=== PATIENT | male | born 1980 | race Caucasian/White ===

== ENCOUNTER 2017-03-21 09:02 | Emergency (ER) | payer OTHER ==
[~2017-03-21] VITALS: Ht 182.9 cm; Wt 140.0 kg
[2017-03-21 09:07] VITALS: BP 122/77
[2017-03-21] MEDS ORDERED: SODIUM CHLORIDE 0.9% 1,000ML IVBOLUS ONE (10:00)
[2017-03-21] MEDS ORDERED: SODIUM CHLORIDE FLUSH 10ML SYR IVF ONE (10:00)
[2017-03-21] MEDS ORDERED: THIAMINE 100 MG in SODIUM CHLORIDE 0.9% 50 ML IVPB ONE (10:00)
[2017-03-21 10:24] LABS: ALANINE AMINOTRANSFERASE 186 U/L (12-78); ALBUMIN 3.8 g/dL (3.4-5.0); ANION GAP 13 mmol/L (5-15); CALCIUM 8.8 mg/dL (8.5-10.1); CHLORIDE 96 mmol/L (98-107); CREATININE 0.98 mg/dL (0.7-1.3)
[2017-03-21 10:26] LABS: ALKALINE PHOSPHATASE 89 U/L (45-117); BILIRUBIN,TOTAL 1.4 mg/dL (0.2-1.0); TOTAL PROTEIN 7.8 g/dL (6.4-8.2)
[2017-03-21 10:29] LABS: MD YES; MEAN CORPUSCULAR HEMOGLOBIN 33.2 pg (27.5-34.5); MEAN CORPUSCULAR HGB CONC 34.5 g/dL (33.2-36.2); MEAN CORPUSCULAR VOLUME 96.1 fL (81-97); MEAN PLATELET VOLUME 8.6 fL (7.4-10.4); PLATELET COUNT 64 x10^3/uL (130-400); RED CELL DISTRIBUTION WIDTH 15.5 % (9.4-14.8)
[2017-03-21 11:41] LABS: LYMPH#(MANUAL) 0.21 x10^3/uL (1-3.4); LYMPHS% (MANUAL) 3 % (22-44); MONOS#(MANUAL) 0.41 x10^3/uL (0.3-2.7); MONOS% (MANUAL) 6 % (2-9); SEG#(MANUAL) 6.28 x10^3/uL (1.8-6.8); SEGS% (MANUAL) 91 % (42-75)
[2017-03-21 11:42] LABS: <PLATELET ESTIMATE> DECREASED; <PLT MORPHOLOGY> NORMAL PLT MORPH; <RBC MORPHOLOGY> NORMAL
[2017-03-21] MEDS ORDERED: POTASSIUM CHLORIDE 20 MEQ TAB.ER.PRT PO ONE (12:00)
[2017-03-21] MEDS ORDERED: POTASSIUM CHLORIDE 20 MEQ TAB.ER.PRT ONE (12:02)
[2017-03-21] MEDS ORDERED: NS + 20MEQ KCL 1,000 ML IV SCH (12:33)
[2017-03-21 12:54] LABS: INTERNATIONAL NORMALIZED RATIO 1.02 (0.93-1.1); PROTHROMBIN TIME 10.5 Seconds (9.6-11.5)
[2017-03-21] MEDS ORDERED: morphine SULFATE 10 MG/ML, 1ML IVPush PRN (13:00)
[2017-03-21] MEDS ORDERED: LORazepam 2 MG/ML, 1ML IV PRN ×4 (13:00)
[2017-03-21] MEDS ORDERED: POLYETHYLENE GLYCOL 17 GM PACKET PO PRN (13:00)
[2017-03-21] MEDS ORDERED: ONDANSETRON 2MG/ML, 2ML IVPush PRN (13:00)
[2017-03-21] MEDS ORDERED: ACETAMINOPHEN 325 MG TABLET PO PRN (13:00)
[2017-03-21] MEDS ORDERED: ENOXAPARIN 40 MG/0.4 ML SQ SCH (13:00)
[2017-03-21] MEDS ORDERED: FOLIC ACID 1 MG TABLET PO SCH (13:00)
[2017-03-21] MEDS ORDERED: LORazepam 1MG TABLET PO PRN ×3 (13:00)
[2017-03-21] MEDS ORDERED: OXYcodone IR 5MG TABLET PO PRN (13:00)
[2017-03-21] MEDS ORDERED: MULTIVITAMINS/MINERALS TABLET PO SCH (13:00)
[2017-03-21] MEDS ORDERED: LORazepam 0.5MG TABLET PO PRN (13:00)
[2017-03-21] MEDS ORDERED: THIAMINE 100MG TABLET PO SCH (13:00)
[2017-03-21] MEDS ORDERED: DOCUSATE 100 MG CAPSULE PO PRN (13:00)
[2017-03-21] MEDS ORDERED: OMEP-110 PO (17:13)
[2017-03-21] MEDS ORDERED: ATOR40TA78 PO (17:13)
[2017-03-21] MEDS ORDERED: LISI-170 PO (17:13)
[2017-03-21] MEDS ORDERED: FAMOTIDINE 20 MG TABLET PO SCH (21:00)
== END 2017-03-21 13:00 | disposition left against medical advice (07) ==
LOC: ED 10:01 → EDIP 12:22 → UNDOADMIN 12:22 → ED 13:00
DX: R56.9 Unspecified convulsions (principal); F10.239 Alcohol dependence with withdrawal, unspecified; E87.6 Hypokalemia; R00.0 Tachycardia, unspecified; I10 Essential (primary) hypertension
CPT/HCPCS: 36415; 70450; 80053; 80307; 83605; 83690; 85025; 85610; 93005; 96365; 96366; 99285; J3411; J7030

== ENCOUNTER 2017-03-21 15:14 | Inpatient (IN) | payer OTHER ==
[~2017-03-21] VITALS: Ht 182.9 cm; Wt 139.0 kg
[2017-03-21] MEDS ORDERED: BACITRACIN ZINC OINT 500U/GM, 0.9 GM ONE (15:50)
[2017-03-21] MEDS ORDERED: NICOTINE 14MG/24 HR PATCH.TD24 ONE (16:14)
[2017-03-21] MEDS ORDERED: NS + 20MEQ KCL 1,000 ML IV ONE (16:14)
[2017-03-21] MEDS ORDERED: DIPH,PERTUSS(ACELL),TET VAC/PF 0.5 ML IM-VACC ONE ×2 (16:14→16:30)
[2017-03-21] MEDS ORDERED: ENOXAPARIN 40 MG/0.4 ML ONE ×2 (16:14→17:36)
[2017-03-21] MEDS ORDERED: LORazepam 2 MG/ML, 1ML ONE (16:19)
[2017-03-21] MEDS: NICOTINE 14MG/24 HR PATCH.TD24 TD SCH (16:24)
[2017-03-21] MEDS ORDERED: DOCUSATE 100 MG CAPSULE PO PRN (16:30)
[2017-03-21] MEDS ORDERED: morphine SULFATE 10 MG/ML, 1ML IVPush PRN (16:30)
[2017-03-21] MEDS ORDERED: SODIUM CHLORIDE 0.9% 1,000ML IVBOLUS ONE (16:30)
[2017-03-21] MEDS ORDERED: ACETAMINOPHEN 325 MG TABLET PO PRN (16:30)
[2017-03-21] MEDS ORDERED: LORazepam 1MG TABLET PO PRN ×3 (16:30)
[2017-03-21] MEDS ORDERED: ONDANSETRON 2MG/ML, 2ML IVPush PRN (16:30)
[2017-03-21] MEDS ORDERED: LORazepam 2 MG/ML, 1ML IVPush PRN (16:30)
[2017-03-21] MEDS ORDERED: SODIUM CHLORIDE FLUSH 10ML SYR IVF ONE (16:30)
[2017-03-21] MEDS ORDERED: POLYETHYLENE GLYCOL 17 GM PACKET PO PRN (16:30)
[2017-03-21] MEDS ORDERED: LORazepam 2 MG/ML, 1ML IV PRN ×3 (16:30)
[2017-03-21] MEDS ORDERED: ATOR40TA78 PO (17:13)
[2017-03-21] MEDS ORDERED: LISI-170 PO (17:13)
[2017-03-21] MEDS ORDERED: OMEP-110 PO (17:13)
[2017-03-21] MEDS: ENOXAPARIN 40 MG/0.4 ML SQ SCH (17:30)
[2017-03-21 20:38] VITALS: BP 129/89
[2017-03-21] MEDS: OXYcodone IR 5MG TABLET PO PRN (21:23)
[2017-03-21] MEDS: FAMOTIDINE 20 MG TABLET PO SCH (21:23)
[2017-03-21] MEDS: NS + 20MEQ KCL 1,000 ML IV SCH (21:25)
[2017-03-22 02:00] VITALS: BP 151/75
[2017-03-22] MEDS: OXYcodone IR 5MG TABLET PO PRN (02:01)
[2017-03-22] MEDS: NS + 20MEQ KCL 1,000 ML IV SCH (03:35)
[2017-03-22 06:42] LABS: CHLORIDE 103 mmol/L (98-107)
[2017-03-22 07:07] LABS: ANION GAP 9 mmol/L (5-15); CALCIUM 8.2 mg/dL (8.5-10.1); CREATININE 0.87 mg/dL (0.7-1.3)
[2017-03-22 08:08] VITALS: BP 131/86
[2017-03-22] MEDS: FAMOTIDINE 20 MG TABLET PO SCH ×2 (09:13→21:00)
[2017-03-22 12:13] VITALS: BP 142/96
[2017-03-22] MEDS: ENOXAPARIN 40 MG/0.4 ML SQ SCH (16:50)
[2017-03-22] MEDS: NICOTINE 14MG/24 HR PATCH.TD24 TD SCH (16:50)
[2017-03-22] MEDS: METOPROLOL TARTRATE 25 MG TABLET PO SCH (18:28)
[2017-03-22 20:00] VITALS: BP 129/80
[2017-03-22] MEDS: LORazepam 0.5MG TABLET PO PRN (21:13)
[2017-03-23 02:00] VITALS: BP 149/98
[2017-03-23] MEDS: LORazepam 0.5MG TABLET PO PRN (04:36)
[2017-03-23] MEDS: METOPROLOL TARTRATE 25 MG TABLET PO SCH ×2 (05:43→18:00)
[2017-03-23 07:45] VITALS: BP 117/63
[2017-03-23] MEDS ORDERED: SODIUM CHLORIDE NASAL SPRAY 45ML BOTTLE NAS PRN (09:00)
[2017-03-23] MEDS: NICOTINE 21 MG/24 HR PATCH.TD24 TD SCH (09:10)
[2017-03-23] MEDS: FAMOTIDINE 20 MG TABLET PO SCH (09:10)
[2017-03-23 09:48] LABS: ANION GAP 9 mmol/L (5-15); CALCIUM 8.5 mg/dL (8.5-10.1); CHLORIDE 103 mmol/L (98-107); CREATININE 0.88 mg/dL (0.7-1.3)
[2017-03-23 10:10] LABS: BASOPHILS # (AUTO) 0.04 x10^3/uL (0-0.1); BASOPHILS % (AUTO) 1 % (0-1); EOSINOPHILS # (AUTO) 0.07 x10^3/uL (0-0.4); EOSINOPHILS % (AUTO) 1 % (1-7); LYMPHOCYTES # (AUTO) 1.17 x10^3/uL (1-3.4); LYMPHOCYTES % (AUTO) 19 % (22-44); MD SCAN; MEAN CORPUSCULAR HEMOGLOBIN 33.4 pg (27.5-34.5); MEAN CORPUSCULAR HGB CONC 34.8 g/dL (33.2-36.2); MEAN CORPUSCULAR VOLUME 95.8 fL (81-97); MEAN PLATELET VOLUME 9.3 fL (7.4-10.4); MONOCYTES # (AUTO) 0.57 x10^3/uL (0.2-0.8); MONOCYTES % (AUTO) 9 % (2-9); NEUTROPHILS # (AUTO) 4.29 x10^3/uL (1.8-6.8); NEUTROPHILS % (AUTO) 70 % (42-75); PLATELET COUNT 63 x10^3/uL (130-400); RED BLOOD COUNT 3.82 x10^6/uL (4.38-5.82); RED CELL DISTRIBUTION WIDTH 15.1 % (9.4-14.8)
[2017-03-23] MEDS: LORazepam 2 MG/ML, 1ML IV PRN ×3 (12:39→15:44)
[2017-03-23] MEDS ORDERED: MAGNESIUM SULFATE PMX 4GM/100M 100 ML IV ONE (14:00)
[2017-03-23] MEDS: MULTIVITAMIN 1 TABLET PO SCH (14:35)
[2017-03-23] MEDS: FOLIC ACID 1 MG TABLET PO SCH (14:35)
[2017-03-23] MEDS: THIAMINE 100MG TABLET PO SCH ×2 (14:35→20:58)
[2017-03-23] MEDS ORDERED: HALOPERIDOL 5 MG/ML ONE (15:54)
[2017-03-23] MEDS ORDERED: HALOPERIDOL 5 MG/ML IM PRN (16:00)
[2017-03-23] MEDS ORDERED: CHLORDIAZEPOXIDE 25 MG CAPSULE PO ONE (16:30)
[2017-03-23] MEDS ORDERED: CHLORDIAZEPOXIDE 25 MG CAPSULE ONE (16:37)
[2017-03-23] MEDS ORDERED: MAGNESIUM SULFATE 4 GM in SODIUM CHLORIDE 0.9% 100 ML IV ONE (19:00)
[2017-03-23] MEDS ORDERED: SODIUM CHLORIDE 0.9% IV ONE (19:30)
[2017-03-23] MEDS ORDERED: PHENOBARBITAL SODIUM IV ONE (19:30)
[2017-03-23] MEDS ORDERED: MICONAZOLE 7 VAG. CRM 2%, 45GM VG SCH (21:00)
[2017-03-23] MEDS ORDERED: PHENOBARBITAL SODIUM 65 MG/ML, 1ML IVPush ONE (22:30)
[2017-03-23] MEDS: DEXMEDETOMIDINE 200 MCG in SODIUM CHLORIDE 0.9% 48 ML IV PRN (22:38)
[2017-03-24] MEDS ORDERED: PHENOBARBITAL SODIUM IV ONE (00:30)
[2017-03-24] MEDS ORDERED: SODIUM CHLORIDE 0.9% IV ONE (00:30)
[2017-03-24] MEDS: DEXMEDETOMIDINE 200 MCG in SODIUM CHLORIDE 0.9% 48 ML IV PRN ×2 (02:39→09:33)
[2017-03-24 04:29] LABS: MEAN CORPUSCULAR HEMOGLOBIN 33.3 pg (27.5-34.5); MEAN CORPUSCULAR HGB CONC 34.5 g/dL (33.2-36.2); MEAN CORPUSCULAR VOLUME 96.5 fL (81-97); MEAN PLATELET VOLUME 9.1 fL (7.4-10.4); PLATELET COUNT 75 x10^3/uL (130-400); RED CELL DISTRIBUTION WIDTH 15.5 % (9.4-14.8)
[2017-03-24 04:38] LABS: ALANINE AMINOTRANSFERASE 162 U/L (12-78); ALBUMIN 3.2 g/dL (3.4-5.0); ANION GAP 10 mmol/L (5-15); CALCIUM 8.1 mg/dL (8.5-10.1); CHLORIDE 105 mmol/L (98-107); CREATININE 0.78 mg/dL (0.7-1.3)
[2017-03-24 04:40] LABS: ALKALINE PHOSPHATASE 82 U/L (45-117); BILIRUBIN,TOTAL 1.2 mg/dL (0.2-1.0)
[2017-03-24 04:53] LABS: BASOPHILS # (AUTO) 0.03 x10^3/uL (0-0.1); BASOPHILS % (AUTO) 1 % (0-1); EOSINOPHILS # (AUTO) 0.07 x10^3/uL (0-0.4); EOSINOPHILS % (AUTO) 1 % (1-7); LYMPHOCYTES % (AUTO) 22 % (22-44); MD SCAN; MONOCYTES # (AUTO) 0.64 x10^3/uL (0.2-0.8); MONOCYTES % (AUTO) 11 % (2-9); NEUTROPHILS # (AUTO) 3.89 x10^3/uL (1.8-6.8); NEUTROPHILS % (AUTO) 66 % (42-75)
[2017-03-24] MEDS: METOPROLOL TARTRATE 25 MG TABLET PO SCH ×2 (05:10→20:20)
[2017-03-24] MEDS: PHENOBARBITAL SODIUM 65 MG/ML, 1ML IM SCH ×2 (07:55→20:20)
[2017-03-24 08:27] LABS: INTERNATIONAL NORMALIZED RATIO 0.95 (0.93-1.1); PROTHROMBIN TIME 9.8 Seconds (9.6-11.5)
[2017-03-24] MEDS: THIAMINE 100MG TABLET PO SCH ×2 (09:00→20:20)
[2017-03-24] MEDS: MULTIVITAMIN 1 TABLET PO SCH (09:00)
[2017-03-24] MEDS: FOLIC ACID 1 MG TABLET PO SCH (09:00)
[2017-03-24] MEDS ORDERED: MVI ADULT IV SCH (11:00)
[2017-03-24] MEDS ORDERED: POTASSIUM CHLORIDE IV SCH (11:00)
[2017-03-24] MEDS ORDERED: THIAMINE IV SCH (11:00)
[2017-03-24] MEDS ORDERED: MAGNESIUM SULFATE IV SCH (11:00)
[2017-03-24] MEDS ORDERED: [UNRECOGNIZED DRUG - OTHER] IV SCH (11:00)
[2017-03-24] MEDS: NICOTINE 21 MG/24 HR PATCH.TD24 TD SCH (11:40)
[2017-03-24] MEDS: ATORVASTATIN 40 MG TABLET PO SCH (11:40)
[2017-03-24] MEDS: OMEPRAZOLE 20 MG CAPSULE.DR PO SCH (11:40)
[2017-03-25] MEDS: METOPROLOL TARTRATE 25 MG TABLET PO SCH (06:16)
[2017-03-25] MEDS ORDERED: PHENOBARBITAL 20 MG/5 ML ORAL SOL PO SCH (08:30)
[2017-03-25] MEDS ORDERED: PHENOBARBITAL 30 MG TABLET ONE (08:44)
[2017-03-25] MEDS: FOLIC ACID 1 MG TABLET PO SCH (08:57)
[2017-03-25] MEDS: ATORVASTATIN 40 MG TABLET PO SCH (08:57)
[2017-03-25] MEDS: MULTIVITAMIN 1 TABLET PO SCH (08:57)
[2017-03-25] MEDS: NICOTINE 21 MG/24 HR PATCH.TD24 TD SCH (08:57)
[2017-03-25] MEDS: THIAMINE 100MG TABLET PO SCH (08:57)
[2017-03-25] MEDS: OMEPRAZOLE 20 MG CAPSULE.DR PO SCH (08:57)
[2017-03-25] MEDS ORDERED: MULT-658 PO (10:19)
[2017-03-26] MEDS ORDERED: PHENOBARBITAL 20 MG/5 ML ORAL SOL PO SCH (08:00)
[2017-03-28] MEDS ORDERED: PHENOBARBITAL 20 MG/5 ML ORAL SOL PO SCH (08:00)
[2017-03-29] MEDS ORDERED: PHENOBARBITAL 20 MG/5 ML ORAL SOL PO SCH (08:00)
== END 2017-03-25 11:45 | disposition home or self-care (01) | DRG 897 ==
LOC: ED 16:00 → EDIP 16:02 → ED 16:17 → 4EST 20:35 → CCU 03-23 18:44
PROVIDERS: ADMIT Hospitalist; ATTEND Hospitalist
DX: F10.239 Alcohol dependence with withdrawal, unspecified (principal); D69.6 Thrombocytopenia, unspecified; K70.10 Alcoholic hepatitis without ascites; E87.1 Hypo-osmolality and hyponatremia; E83.42 Hypomagnesemia; E78.5 Hyperlipidemia, unspecified; S00.01XA Abrasion of scalp, initial encounter; E87.6 Hypokalemia; I10 Essential (primary) hypertension; R04.0 Epistaxis; Z79.899 Other long term (current) drug therapy; W18.39XA Other fall on same level, initial encounter; Y93.89 Activity, other specified; Y92.89 Other specified places as the place of occurrence of the external cause
CPT/HCPCS: 36415; 70450; 80048; 80053; 83735; 85025; 85610; 87081; 90715; 93005; 96361; 96372; 96374; J1650; J2560; J3411; J3475; J3480; J1630; J2060; J7030